=== PATIENT | female | born 2000 | race Hispanic/Latino ===

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

== ENCOUNTER 2021-05-06 09:59 | Emergency (ER) | payer OTHER, SELFPAY ==
[2021-05-06] MEDS ORDERED: Bicillin LA 1.2 MILLION UNITS/2 ML SYRINGE ONE (10:51)
== END 2021-05-06 11:20 | disposition home or self-care (01) ==
LOC: NAV ERS 09:59
DX: J02.0 Streptococcal pharyngitis (principal)
CPT/HCPCS: 96372; 99283; J0561

== ENCOUNTER 2022-03-01 06:43 | Emergency (ER) | payer OTHER, SELFPAY ==
[2022-03-01 07:08] LABS: Bilirubin Negative (Negative); Blood, Urine Negative (Negative); Clarity Clear (Clear); Glucose, Urine (Dipstick) Negative (Negative); Ketone, Urine Trace mg/dL (Negative); Leukocyte Negative (Negative); Nitrite Negative (Negative); Protein, Urine (Dipstick) 30 mg/dL (Neg-Trace); Specific Gravity, Urine 1.025 (1.005-1.030); Urobilinogen 0.2 mg/dL (Less than 2); pH, Urine 7.5 (5.0-9.0)
[2022-03-01 07:09] LABS: Bacteria/HPF None Seen HPF (None Seen); Pregu Control Background? CLEAR/WHITE (CLR/WHITE); Pregu Control Bar Appear? YES (CONTROL BAR); RBC/HPF None Seen HPF (0-3); Specific Gravity 1.025 (1.002-1.036); Squamous Epithelial 0-3 HPF (0-3); WBC/HPF None Seen HPF (0-3)
[2022-03-01 07:10] LABS: Pregnancy Test - Urine (BHCG) Negative (Negative)
[2022-03-01] MEDS ORDERED: Ondansetron ODT 4 MG TAB ONE (07:10)
== END 2022-03-01 07:33 | disposition home or self-care (01) ==
LOC: NAV ERS 06:43
DX: R11.2 Nausea with vomiting, unspecified (principal)
CPT/HCPCS: 81003; 81015; 81025; 99284; Q0162

== ENCOUNTER 2022-07-24 12:00 | Emergency (ER) | payer MEDICAID, OTHER ==
[2022-07-24] MEDS ORDERED: Ondansetron ODT 4 MG TAB ONE (12:55)
== END 2022-07-24 13:01 | disposition home or self-care (01) ==
LOC: NAV ERS 12:00
DX: R11.0 Nausea (principal)
CPT/HCPCS: 99283; Q0162

== ENCOUNTER 2023-07-01 08:33 | Emergency (ER) | payer SELFPAY ==
[2023-07-01] MEDS ORDERED: Sodium Chloride 0.9% 1,000 ML ONE (09:13)
[2023-07-01] MEDS ORDERED: Sodium Chloride 0.9% 100 ML ONE (09:13)
[2023-07-01] MEDS ORDERED: Metoclopramide HCl 10 MG (2 mL) VIAL ONE (09:13)
[2023-07-01] MEDS ORDERED: diphenhydrAMINE 50 MG/ML VIAL ONE (09:13)
[2023-07-01] MEDS ORDERED: Ketorolac Tromethamine 30 MG (1 mL) VIAL ONE (09:13)
== END 2023-07-01 10:40 | disposition home or self-care (01) ==
LOC: NAV ERS 08:33
DX: R51.9 Headache, unspecified (principal); R11.2 Nausea with vomiting, unspecified
CPT/HCPCS: 96365; 96375; J1200; J1885; J2765; J7050

== ENCOUNTER 2023-07-24 21:28 | Emergency (ER) | payer SELFPAY ==
[2023-07-24] MEDS ORDERED: Amoxicillin/Potassium Clav 875 MG TAB ONE (22:06)
[2023-07-24] MEDS ORDERED: HYDROcodone/Acetaminophen 10/325 mg Tablet ONE (22:06)
== END 2023-07-24 22:13 | disposition home or self-care (01) ==
LOC: NAV ERS 21:28
DX: K04.7 Periapical abscess without sinus (principal); K02.9 Dental caries, unspecified; F17.290 Nicotine dependence, other tobacco product, uncomplicated
CPT/HCPCS: 99282

== ENCOUNTER 2023-08-17 09:14 | Outpatient (CLI) | payer OTHER ==
[2023-08-17 09:36] LABS: BHCG - Serum Negative (NEGATIVE); Pregs Control Bar Appear? YES (CONTROL BAR)
== END 2023-08-17 09:15 | disposition home or self-care (01) ==
LOC: NAV LAB 09:14
PROVIDERS: ATTEND Pathology Anatomic Pathology & Clinical Pathology
DX: Z00.00 Encounter for general adult medical examination without abnormal findings (principal)
CPT/HCPCS: 36415; 84703

== ENCOUNTER 2023-08-18 19:52 | Emergency (ER) | payer SELFPAY | END 2023-08-18 20:47 | disposition home or self-care (01) | LOC: EEVIPCON 19:52 → NAV ERS 19:52 | DX: S00.93XA Contusion of unspecified part of head, initial encounter (principal); F17.290 Nicotine dependence, other tobacco product, uncomplicated; Y04.0XXA Assault by unarmed brawl or fight, initial encounter | CPT/HCPCS: 99283 ==

== ENCOUNTER 2023-09-01 23:04 | Emergency (ER) | payer SELFPAY ==
[2023-09-01] MEDS ORDERED: Ondansetron ODT 4 MG TAB ONE (23:19)
== END 2023-09-01 23:45 | disposition home or self-care (01) ==
LOC: NAV ERS 23:04
DX: R11.0 Nausea (principal); F17.290 Nicotine dependence, other tobacco product, uncomplicated
CPT/HCPCS: 99283; Q0162

== ENCOUNTER 2023-09-15 07:46 | Emergency (ER) | payer SELFPAY | END 2023-09-15 08:40 | disposition home or self-care (01) | LOC: NAV ERS 07:46 | DX: F41.9 Anxiety disorder, unspecified (principal); N76.0 Acute vaginitis; R11.15 Cyclical vomiting syndrome unrelated to migraine; F17.290 Nicotine dependence, other tobacco product, uncomplicated | CPT/HCPCS: 99284 ==

== ENCOUNTER 2024-04-03 09:40 | Emergency (ER) | payer OTHER ==
[2024-04-03] MEDS ORDERED: Lorazepam 0.5 MG TAB ONE (10:13)
[2024-04-03] MEDS ORDERED: Ondansetron ODT 4 MG TAB ONE (10:13)
[2024-04-03 10:55] LABS: Bilirubin Negative (Negative); Blood, Urine Negative (Negative); Clarity Clear (Clear); Glucose, Urine (Dipstick) Negative (Negative); Ketone, Urine Negative (Negative); Leukocyte Negative (Negative); Nitrite Negative (Negative); Protein, Urine (Dipstick) Trace mg/dL (Neg-Trace); Urobilinogen 0.2 mg/dL (Less than 2)
[2024-04-03 10:57] LABS: Pregnancy Test - Urine (BHCG) Negative (Negative); Pregu Control Background? CLEAR/WHITE (CLR/WHITE); Pregu Control Bar Appear? YES (CONTROL BAR)
[2024-04-03 11:13] LABS: CAUTI Indications for Culture Dysuria,urgency,freq
[2024-04-03 11:14] LABS: Transitional Epithelial 0-3 HPF (None Seen)
[2024-04-03 11:15] LABS: Bacteria/HPF 1+ HPF (None Seen); Mucous/LPF 2+ LPF (<2+); RBC/HPF 0-3 HPF (0-3)
[2024-04-03 11:16] LABS: Urine Culture Reflex No No
[2024-04-03 11:17] LABS: Amphetamine Not Detected (NotDetected); Barbiturates Screen Not Detected (NotDetected); Benzodiazepine Screen Detected (NotDetected); Cocaine Metabolite Screen Not Detected (NotDetected); Methadone Not Detected (NotDetected); Methamphetamine Not Detected (NotDetected); Opiate Screen Not Detected (NotDetected); Oxycodone Screen Not Detected (NotDetected); Phencyclidine (PCP) Not Detected (NotDetected); THC/Cannabinoid Screen Detected (NotDetected); Tricyclic Screen Not Detected (NotDetected)
== END 2024-04-03 11:40 | disposition home or self-care (01) ==
LOC: NAV ERS 09:40
DX: R11.2 Nausea with vomiting, unspecified (principal); F12.10 Cannabis abuse, uncomplicated; F17.290 Nicotine dependence, other tobacco product, uncomplicated
CPT/HCPCS: 80306; 81001; 81025; 99284; Q0162

== ENCOUNTER 2024-10-08 09:41 | Emergency (ER) | payer OTHER ==
[2024-10-08 10:04] LABS: Glucose, Urine (Dipstick) Negative (Negative); Leukocyte Small (Negative); Protein, Urine (Dipstick) Negative (Neg-Trace); Specific Gravity, Urine 1.010 (1.005-1.030)
[2024-10-08 10:19] LABS: Bacteria/HPF Rare-Few HPF (None Seen); CAUTI Indications for Culture Dysuria,urgency,freq; RBC/HPF 0-3 HPF (0-3); WBC/HPF 0-3 HPF (0-3)
[2024-10-08 10:20] LABS: Pregnancy Test - Urine (BHCG) Negative (Negative); Pregu Control Background? CLEAR/WHITE (CLR/WHITE); Pregu Control Bar Appear? YES (CONTROL BAR); Urine Culture Reflex No No
== END 2024-10-08 11:09 | disposition home or self-care (01) ==
LOC: NAV ERS 09:41
DX: R30.0 Dysuria (principal); R10.30 Lower abdominal pain, unspecified; F17.290 Nicotine dependence, other tobacco product, uncomplicated
CPT/HCPCS: 81001; 81025; 87077; 87086; 87186; 99284

== ENCOUNTER 2025-01-04 08:07 | Emergency (ER) | payer OTHER ==
[2025-01-04] MEDS ORDERED: Lidocaine/Transparent Dressing 1 EACH KIT ONE (08:47)
[2025-01-04] MEDS ORDERED: Acetaminophen 500 MG TAB ONE (09:23)
== END 2025-01-04 11:00 | disposition home or self-care (01) ==
LOC: NAV ERS 08:07
DX: S01.01XA Laceration without foreign body of scalp, initial encounter (principal); F32.A Depression, unspecified; F17.290 Nicotine dependence, other tobacco product, uncomplicated; Y04.8XXA Assault by other bodily force, initial encounter
CPT/HCPCS: 12001; 70450; Q0162

== ENCOUNTER 2025-01-06 03:59 | Emergency (ER) | payer OTHER ==
[2025-01-06] MEDS ORDERED: Ketorolac Tromethamine 30 MG (1 mL) VIAL ONE (04:43)
[2025-01-06] MEDS ORDERED: Ondansetron PF 4 MG/2 ML Vial ONE (04:43)
[2025-01-06 04:55] LABS: #Basophils 0.0 thou/uL (0.0-0.2); #Eosinophils 0.0 thou/uL (0.0-0.7); #Lymphocytes 1.8 thou/uL (1.20-3.40); #Monocytes 0.3 thou/uL (0.11-0.59); #Neutrophils 4.3 thou/uL (1.40-6.50); %Basophils 0.8 % (0.0-1.0); %Eosinophils 0.7 % (0.0-10.0); %Lymphocytes 28.2 % (21.0-51.0); %Monocytes 4.1 % (0.0-10.0); %Neutrophils 66.3 % (42.0-75.0); Hematocrit 38.0 % (36.0-47.0); Hemoglobin 12.9 g/dL (12.0-16.0); Mean Corpuscular Hemoglobin 31.2 pg (27.0-31.0); Mean Corpuscular Volume 92.0 fl (78.0-98.0); Platelet Count 241 10x3/uL (130-400); Red Blood Cell (RBC) Count 4.13 mill/uL (4.20-5.40); White Blood Cell (WBC) Count 6.5 10x3/uL (4.8-10.8)
[2025-01-06 05:09] LABS: ALT (SGPT) 10 U/L (Less than 34); AST (SGOT) 19 U/L (11-34); Albumin 4.2 g/dL (3.1-4.5); Alkaline Phosphatase 56 U/L (40-110); Anion Gap 13 mmol/L (10-20); BUN (Urea Nitrogen) 9 mg/dL (7.0-18.7); Bilirubin, Total 0.3 mg/dL (0.3-1.2); Calc. Creatinine Clearance 0 mL/min (70-130); Calcium 8.7 mg/dL (7.8-10.44); Carbon Dioxide 26 mmol/L (22-29); Chloride 104 mmol/L (98-107); Globulin 2.7 g/dL (2.4-3.5); Glucose 142 mg/dL (70-105); Potassium 3.2 mmol/L (3.5-5.1); Sodium 140 mmol/L (136-145)
[2025-01-06] MEDS ORDERED: Acetaminophen 500 MG TAB ONE (05:16)
[2025-01-06 06:49] LABS: Glucose, Urine (Dipstick) Negative (Negative); Leukocyte Trace (Negative); Protein, Urine (Dipstick) 30 mg/dL (Neg-Trace); Specific Gravity, Urine 1.020 (1.005-1.030)
[2025-01-06 06:52] LABS: Pregnancy Test - Urine (BHCG) Negative (Negative); Pregu Control Bar Appear? YES (CONTROL BAR)
[2025-01-06 06:53] LABS: Pregu Control Background? CLEAR/WHITE (CLR/WHITE)
[2025-01-06 06:57] LABS: Bacteria/HPF 4+ HPF (None Seen); CAUTI Indications for Culture Pelvic or flank pain
[2025-01-06 06:58] LABS: Urine Culture Reflex Yes Yes
[2025-01-06] MEDS ORDERED: Cephalexin 500 MG CAP ONE (07:11)
[2025-01-06] MEDS ORDERED: Cephalexin 125 MG/5 ML Oral Suspension ONE ×2 (07:18)
== END 2025-01-06 07:39 | disposition home or self-care (01) ==
LOC: NAV ERS 03:59
DX: R11.2 Nausea with vomiting, unspecified (principal); F07.81 Postconcussional syndrome; N39.0 Urinary tract infection, site not specified; F17.290 Nicotine dependence, other tobacco product, uncomplicated
CPT/HCPCS: 80053; 81001; 81025; 85025; 87086; J1885; J2405; J7030

== ENCOUNTER 2025-02-20 08:20 | Emergency (ER) | payer OTHER | END 2025-02-20 08:45 | disposition home or self-care (01) | LOC: NAV ERS 08:20 | DX: S01.01XD Laceration without foreign body of scalp, subsequent encounter (principal); F17.290 Nicotine dependence, other tobacco product, uncomplicated; Y09 Assault by unspecified means ==